=== PATIENT | female | born 1965 | race Hispanic/Latino ===

== ENCOUNTER 2018-10-08 10:19 | Emergency (ER) | payer BC ==
--- NOTE | 2018-10-08 11:07 | RAD REPORT ---
EXAM DESCRIPTION: CT - Head Brain Wo Cont - 10/08/2018 10:58 am CLINICAL HISTORY: Weathers's palsy, left-sided facial numbness left-sided facial droop COMPARISON: None. TECHNIQUE: Axial 5 mm thick images of the head were obtained without IV contrast. All CT scans are performed using dose optimization technique as appropriate and may include automated exposure control or mA/KV adjustment according to patient size. FINDINGS: No intracranial hemorrhage, mass, edema or shift of mid-line structures. No acute infarcti on changes seen. No abnormal extra-axial fluid collections. Ventricles are normal. Pain, symmetric bi lateral basal ganglia mineralization. Mastoid air cells and visualized portions of the paranasal sinuses are clear. No acute bony findings. IMPRESSION: Negative non-contrast CT head examination.
[2018-10-08] MEDS ORDERED: predniSONE 20 MG TAB ONE (11:21)
--- NOTE | 2018-10-08 11:32 | ER ---
Nurse's Notes [facility] Name: Shila Mixon Age: 53 yrs Sex: Female : 1965 Arrival Date: 10/08/2018 Time: 10:21 Bed 19 Private MD: Diagnosis: Weathers's palsy Presentation: 10/08 10:32 Presenting complaint: Patient states: left sided facial numbness, facial droop X 1 iw hour, denies weakness, left eyelid droop noted, unable to move left eyebrow. Transition of care: patient was not received from another setting of care. Onset of symptoms was October 08, 2018. Risk Assessment: Do you want to hurt yourself or someone else? Patient reports no desire to harm self or others. 10:32 Method Of Arrival: Ambulatory iw 10:32 Acuity: SANYA 3 iw 10:35 Initial Sepsis Screen: Does the patient meet any 2 criteria? No. Patient's initial iw sepsis screen is negative. Does the patient have a suspected source of infection? No. Patient's initial sepsis screen is negative. Care prior to arrival: None. DEALER CARD ROOM: 10:32 LMP N/A - iw Historical: - Allergies: 10:42 No Known Allergies; em - Home Meds: 10:42 None [Active]; em - PMHx: 10:42 TIA; CVA; Hyperlipidemia; em - PSHx: 10:42 ; Hernia repair; Appendectomy; Cholecystectomy; em - Immunization history:: Last tetanus immunization: up to date Flu vaccine is not up to date. - Social history:: Smoking status: Patient/guardian denies using tobacco. - Ebola Screening: : Patient negative for fever greater than or equal to 101.5 degrees Fahrenheit, and additional compatible Ebola Virus Disease symptoms Patient denies exposure to infectious person Patient denies travel to an Ebola-affected area in the 21 days before illness onset No symptoms or risks identified at this time. Screenin:44 Abuse screen: Denies threats or abuse. Nutritional screening: No deficits noted. em Tuberculosis screening: No symptoms or risk factors identified. Fall Risk None identified. Assessment: 10:35 General: Appears in no apparent distress. comfortable, Behavior is calm, cooperative. em Pain: Denies pain. Neuro: Level of Consciousness is awake, alert, obeys commands, Oriented to person, place, time, situation, Chief Nursing Executive are equal bilaterally Moves all extremities. Gait is steady, Speech is normal, Facial droop on right, paresthesias in right cheek and right jaw Reports paresthesias since this morning. Cardiovascular: Capillary refill < 3 seconds Patient's skin is warm and dry. Respiratory: Airway is patent Respiratory effort is even, unlabored, Respiratory pattern is regular, symmetrical. Derm: Skin is intact, is healthy with good turgor, Skin is pink, warm \T\ dry. Musculoskeletal: Range of motion: intact in all extremities. 10:45 Reassessment: Patient appears in no apparent distress at this time. I agree with above iw assessment by Brett Russell LVN. 11:30 Reassessment: Patient appears in no apparent distress at this time. Patient and/or em family updated on plan of care and expected duration. Pain level reassessed. Patient is alert, oriented x 3, equal unlabored respirations, skin warm/dry/pink. Vital Signs: 10:42 BP 149 / 97; Pulse 104; Resp 20; Pulse Ox 96% on R/A; Weight 76.66 kg; Height 5 ft. 4 em in. (162.56 cm); Pain 0/10; 11:30 BP 123 / 82; Pulse 81; Resp 18; Pulse Ox 99% on R/A; em 10:42 Body Mass Index 29.01 (76.66 kg, 162.56 cm) em ED Course: 10:21 Patient arrived in ED. as 10:25 Brett Russell LVN is Primary Nurse. em 10:26 William Clark PA is PHCP. jr8 10:27 Adriel Condon MD is Attending Physician. jr8 10:34 Triage completed. iw 10:42 Arm band placed on. em 10:44 Patient has correct armband on for positive identification. Bed in low position. Call em light in reach. Pulse ox on. NIBP on. 11:18 CT Head Brain wo Cont In Process Unspecified. EDMS 11:31 Dax Pisano MD is Referral Physician. jr8 12:13 No provider procedures requiring assistance completed. Patient did not have IV access em during this emergency room visit. Administered Medications: 11:13 Drug: predniSONE 60 mg Route: PO; em 12:09 Follow up: Response: No adverse reaction em Outcome: 11:31 Discharge ordered by MD. obrien 12:13 Discharged to home ambulatory. em 12:13 Condition: good 12:13 Discharge instructions given to patient, Instructed on discharge instructions, follow up and referral plans. medication usage, Demonstrated understanding of instructions, follow-up care, medications, Prescriptions given X 1. 12:14 Patient left the ED. em Signatures: Dispatcher [employer] EDBrett Giron, OFFICE MACHINE SERVICER APPRENTICE OFFICE MACHINE SERVICER APPRENTICE Jenise Moreno Irene, RN RN William Perkins PA PA jrKelsey
--- NOTE | 2018-10-08 11:32 | EDPHYS ---
Physician Documentation [facility] Name: Shila Mixon Age: 53 yrs Sex: Female : 1965 Arrival Date: 10/08/2018 Time: 10:21 Bed 19 Private MD: ED Physician Adriel Condon HPI: 10/08 10:55 This 53 yrs old Female presents to ER via Ambulatory with complaints of jr8 Numbness Of Face. 10:55 The patient's problem is reported as a facial droop, on left. Onset: The jr8 symptoms/episode began/occurred acutely, this morning, today. Duration: The episode is continuous. Context: symptoms became apparent when brushing teeth this AM. The symptoms are alleviated by nothing. The symptoms are aggravated by nothing. Associated signs and symptoms: Pertinent positives: Taste difference of tongue and headache that had preceded symptoms yesterday . Severity of symptoms: At their worst the symptoms were moderate in the emergency department the symptoms are unchanged. Patient's baseline: Neuro: alert and fully oriented, Motor: no deficits, Ambulation: walks without assistance, Speech: normal. The patient has not experienced similar symptoms in the past. The patient has not recently seen a physician. 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 - Social history:: Smoking status: Patient/guardian denies using tobacco. - Ebola Screening: : Patient negative for fever greater than or equal to 101.5 degrees Fahrenheit, and additional compatible Ebola Virus Disease symptoms Patient denies exposure to infectious person Patient denies travel to an Ebola-affected area in the 21 days before illness onset No symptoms or risks identified at this time. ROS: 10:55 Eyes: Negative for injury, pain, redness, and discharge, ENT: Negative for injury, jr8 pain, and discharge, Neck: Negative for injury, pain, and swelling, Cardiovascular: Negative for chest pain, palpitations, and edema, Respiratory: Negative for shortness of breath, cough, wheezing, and pleuritic chest pain, Abdomen/GI: Negative for abdominal pain, nausea, vomiting, diarrhea, and constipation, Back: Negative for injury and pain, MS/Extremity: Negative for injury and deformity, Skin: Negative for injury, rash, and discoloration. 10:55 Neuro: Positive for headache, tingling, weakness. Exam: 10:55 Eyes: Pupils equal round and reactive to light, extra-ocular motions intact. Lids and jr8 lashes normal. Conjunctiva and sclera are non-icteric and not injected. Cornea within normal limits. Periorbital areas with no swelling, redness, or edema. ENT: Nares patent. No nasal discharge, no septal abnormalities noted. Tympanic membranes are normal and external auditory canals are clear. Oropharynx with no redness, swelling, or masses, exudates, or evidence of obstruction, uvula midline. Mucous membranes moist. Neck: Trachea midline, no thyromegaly or masses palpated, and no cervical lymphadenopathy. Supple, full range of motion without nuchal rigidity, or vertebral point tenderness. No Meningismus. Cardiovascular: Regular rate and rhythm with a normal S1 and S2. No gallops, murmurs, or rubs. Normal PMI, no JVD. No pulse deficits. Respiratory: Lungs have equal breath sounds bilaterally, clear to auscultation and percussion. No rales, rhonchi or wheezes noted. No increased work of breathing, no retractions or nasal flaring. Abdomen/GI: Soft, non-tender, with normal bowel sounds. No distension or tympany. No guarding or rebound. No evidence of tenderness throughout. Back: No spinal tenderness. No costovertebral tenderness. Full range of motion. Skin: Warm, dry with normal turgor. Normal color with no rashes, no lesions, and no evidence of cellulitis. MS/ Extremity: Pulses equal, no cyanosis. Neurovascular intact. Full, normal range of motion. 10:55 Neuro: Orientation: to person, place, time \T\ situation. Mentation: is normal, Memory: is normal, immediate memory is intact, recent memory is intact, remote memory is intact, Cranial nerves: CN I not tested, normal except CN-7 Palsy present, visual maguire are intact. extraocular movements are intact, facial droop noted on left, with forehead involved. decreased ocular muscle tone in the left eye, no gross hearing deficit,. Nystagmus is absent. Speech is clear and appropriate. Tongue strength is normal, Cerebellar function: normal finger to nose testing, heel to gomez testing is normal, Motor: moves all fours, strength is 5/5 in all extremities, Sensation: no obvious gross deficits, Gait: is steady, at a normal pace, without difficulty, seizure activity, is not displayed by the patient, Abnormal movements: there are no abnormal movements. 11:36 Radiologist reports: No acute findings [facility] Vital Signs: 10:42 BP 149 / 97; Pulse 104; Resp 20; Pulse Ox 96% on R/A; Weight 76.66 kg; Height 5 ft. 4 em in. (162.56 cm); Pain 0/10; 11:30 BP 123 / 82; Pulse 81; Resp 18; Pulse Ox 99% on R/A; em 10:42 Body Mass Index 29.01 (76.66 kg, 162.56 cm) em MDM: 10:27 Patient medically screened. [facility] 11:30 Data reviewed: vital signs, nurses notes, radiologic studies, CT scan, and as a result, [facility] I will discharge patient. Data interpreted: Pulse oximetry: on room air is 96 %. Interpretation: normal. Counseling: I had a detailed discussion with the patient and/or guardian regarding: the historical points, exam findings, and any diagnostic results supporting the discharge/admit diagnosis, radiology results, the need for outpatient follow up, a neurologist, to return to the emergency department if symptoms worsen or persist or if there are any questions or concerns that arise at home. 10/08 10:38 Order name: CT Head Brain wo Cont; Complete Time: 11:30 [facility] Administered Medications: 11:13 Drug: predniSONE 60 mg Route: PO; em 12:09 Follow up: Response: No adverse reaction em Disposition: 16:50 Co-signature as Attending Physician, Adriel Condon MD. Disposition: 10/08/18 11:31 Discharged to Home. Impression: Weathers's palsy. - Condition is Stable. - Prescriptions for Prednisone 20 mg Oral Tablet - take 3 tablets by ORAL route once daily for 6 days then 2 tabs for 2 days then 1 tab for 2 days; 21 tablet. - Medication Reconciliation Form, Thank You Letter, Antibiotic Education, Prescription Opioid Use form. - Work release form (10/09/18 10:38). eb - Follow up: Dax Pisano MD; When: 2 - 3 days; Reason: Recheck today's complaints, Continuance of care, Re-evaluation by your physician. Signatures: Dispatcher [employer] EDMS Brett Russell, BIOLOGY LECTURER BIOLOGY LECTURER em William Clark, JARED PA jr8 Adriel Condon MD MD gs Botello, Elizabeth eb Corrections: (The following items were deleted from the chart) 12:14 11:31 10/08/2018 11:31 Discharged to Home. Impression: Weathers's palsy. Condition is em Stable. Forms are Medication Reconciliation Form, Thank You Letter, Antibiotic Education, Prescription Opioid Use. Follow up: Dax Pisano; When: 2 - 3 days; Reason: Recheck today's complaints, Continuance of care, Re-evaluation by your physician. jr8
== END 2018-10-08 12:14 | disposition home or self-care (01) ==
LOC: ER 10:19
DX: G51.0 Bell's palsy (principal)
CPT/HCPCS: 70450; 99284; J7512

== ENCOUNTER 2018-10-18 20:11 | Emergency (ER) | payer BC ==
[2018-10-18] MEDS ORDERED: GABAPENTIN 300 MG CAP ONE (20:56)
[2018-10-18] MEDS ORDERED: DIPHENHYDRAMINE 50 MG/ML VIAL ONE (20:57)
[2018-10-18] MEDS ORDERED: dexAMETHasone 10 MG/ML VIAL ONE (20:57)
[2018-10-18] MEDS ORDERED: METOCLOPRAMIDE 10 MG/2mL INJ ONE (20:57)
--- NOTE | 2018-10-18 22:08 | ER ---
Nurse's Notes [facility] Name: Shila Mixon Age: 53 yrs Sex: Female : 1965 Arrival Date: 10/18/2018 Time: 20:15 Bed 17 Private MD: Diagnosis: Migraine;Neuralgia and neuritis, unspecified;Zoster [herpes zoster] Presentation: 10/18 20:19 Presenting complaint: Patient states: headache X1 day with tylenol HI TEACHER. pt dx dong's ak1 palsy last week in ER. Transition of care: patient was not received from another setting of care. Onset of symptoms was October 18, 2018. Risk Assessment: Do you want to hurt yourself or someone else? Patient reports no desire to harm self or others. Initial Sepsis Screen: Does the patient meet any 2 criteria? No. Patient's initial sepsis screen is negative. Does the patient have a suspected source of infection? No. Patient's initial sepsis screen is negative. Care prior to arrival: None. 20:19 Method Of Arrival: Ambulatory ak1 20:19 Acuity: SANYA 3 ak1 Triage Assessment: 20:19 General: Appears uncomfortable, Behavior is cooperative, anxious, crying. 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 - Social history:: Smoking status: Patient/guardian denies using tobacco. - Ebola Screening: : No symptoms or risks identified at this time. Screenin:50 Abuse screen: Denies threats or abuse. Denies injuries from another. Nutritional aj screening: No deficits noted. Tuberculosis screening: No symptoms or risk factors identified. Fall Risk None identified. Assessment: 20:50 General: Appears in no apparent distress. uncomfortable, Behavior is calm, cooperative, aj appropriate for age. Pain: Complains of pain in face. Neuro: Level of Consciousness is awake, alert, obeys commands, Oriented to person, place, time, situation, Appropriate for age Speech is slurred, Facial droop on left. Neuro: Reports headache. Respiratory: Airway is patent Respiratory effort is even, unlabored, Respiratory pattern is regular, symmetrical. Derm: Skin is intact, is healthy with good turgor, Skin is pink, warm \T\ dry. normal. 21:33 Reassessment: Patient appears in no apparent distress at this time. No changes from aj previously documented assessment. Patient and/or family updated on plan of care and expected duration. Pain level reassessed. Patient is alert, oriented x 3, equal unlabored respirations, skin warm/dry/pink. Patient is resting comfortably in bed in NAD Patient states feeling better. Patient states symptoms have improved. 22:26 Reassessment: Patient appears in no apparent distress at this time. Patient is alert, aa1 oriented x 3, equal unlabored respirations, skin warm/dry/pink. Discussed d/c \T\ f/u instructions with pt; denies questions or concerns at this time. Amb to lobby with steady gait. Patient states feeling better. Vital Signs: 20:19 BP 114 / 95; Pulse 112; Resp 20; Temp 98.5; Pulse Ox 99% on R/A; Weight 76.66 kg (R); ak1 Height 5 ft. 4 in. (162.56 cm) (R); Pain 10/10; 22:26 BP 122 / 89; Pulse 91; Resp 18; Temp 98.6; Pulse Ox 98% on R/A; Pain 4/10; aa1 20:19 Body Mass Index 29.01 (76.66 kg, 162.56 cm) ak1 ED Course: 20:15 Patient arrived in ED. ag3 20:19 William Clark PA is PHCP. jr8 20:19 Daniel Rueda MD is Attending Physician. jr8 20:19 Arm band placed on Patient placed in an exam room, on a stretcher, Patient notified of ak1 wait time. 20:21 Triage completed. ak1 20:29 Cecille Angeles, SANDY is Primary Nurse. aj 20:50 Inserted saline lock: 22 gauge in left antecubital area, using aseptic technique. Blood aj collected. 22:00 Patient has correct armband on for positive identification. Bed in low position. Call aa1 light in reach. Side rails up X2. Report received from Cecille Angeles RN. Pulse ox on. NIBP on. 22:07 Dax Pisano MD is Referral Physician. jr8 22:26 No provider procedures requiring assistance completed. IV discontinued, intact, aa1 bleeding controlled, No redness/swelling at site. Pressure dressing applied. Administered Medications: 20:50 Drug: Gabapentin 300 mg Route: PO; aj 22:32 Follow up: Response: No adverse reaction; Marked relief of symptoms aa1 20:50 Drug: Reglan 10 mg Route: IVP; Site: left antecubital; aj 22:31 Follow up: Response: No adverse reaction; Marked relief of symptoms aa1 20:50 Drug: Benadryl 25 mg Route: IVP; Site: left antecubital; aj 22:31 Follow up: Response: No adverse reaction; Marked relief of symptoms aa1 20:50 Drug: Decadron - Dexamethasone 10 mg Route: IVP; Site: left antecubital; aj 22:31 Follow up: Response: No adverse reaction; Marked relief of symptoms aa1 Outcome: 22:08 Discharge ordered by . jr8 22:26 Discharged to home ambulatory. aa1 22:26 Condition: good 22:26 Discharge instructions given to patient, Instructed on discharge instructions, follow up and referral plans. medication usage, Demonstrated understanding of instructions, follow-up care, medications, Prescriptions given X 3. 22:32 Patient left the ED. aa1 Signatures: Kathrin Real RN RN aa1 Cecille Angeles RN William Tamayo PA PA jr8 Sirena Mora RN RN ak1 Joceline Nagy 3
--- NOTE | 2018-10-18 22:08 | EDPHYS ---
Physician Documentation [facility] Name: Shila Mixon Age: 53 yrs Sex: Female : 1965 Arrival Date: 10/18/2018 Time: 20:15 Bed 17 Private MD: ED Physician Daniel Rueda HPI: 10/18 21:19 This 53 yrs old Female presents to ER via Ambulatory with complaints of jr8 Headache. 21:19 The patient complains of pain to the left side of head. The patient describes the jr8 headache as a pressure, throbbing. Onset: The symptoms/episode began/occurred acutely, today. Associated signs and symptoms: The patient has no apparent associated signs or symptoms. Severity of symptoms: At its worst the pain was moderate, in the emergency department the pain is unchanged. Headache History: Denies prior headaches. The symptoms are alleviated by nothing. the symptoms are aggravated by nothing. The patient has not experienced similar symptoms in the past. The patient has been recently seen by a physician:. 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 Stated that she finished her steroids. Starting this AM with severe headache and pressure like feeling to left cheek, back of ear, and head. 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 - Social history:: Smoking status: Patient/guardian denies using tobacco. - Ebola Screening: : No symptoms or risks identified at this time. ROS: 21:19 Eyes: Negative for injury, pain, redness, and discharge, ENT: Negative for injury, jr8 pain, and discharge, Neck: Negative for injury, pain, and swelling, Cardiovascular: Negative for chest pain, palpitations, and edema, Respiratory: Negative for shortness of breath, cough, wheezing, and pleuritic chest pain, Abdomen/GI: Negative for abdominal pain, nausea, vomiting, diarrhea, and constipation, Back: Negative for injury and pain, MS/Extremity: Negative for injury and deformity, Skin: Negative for injury, rash, and discoloration. 21:19 Neuro: Positive for headache. Exam: 21:19 Eyes: Pupils equal round and reactive to light, extra-ocular motions intact. Lids and jr8 lashes normal. Conjunctiva and sclera are non-icteric and not injected. Cornea within normal limits. Periorbital areas with no swelling, redness, or edema. ENT: Nares patent. No nasal discharge, no septal abnormalities noted. Tympanic membranes are normal and external auditory canals are clear. Oropharynx with no redness, swelling, or masses, exudates, or evidence of obstruction, uvula midline. Mucous membranes moist. Neck: Trachea midline, no thyromegaly or masses palpated, and no cervical lymphadenopathy. Supple, full range of motion without nuchal rigidity, or vertebral point tenderness. No Meningismus. Cardiovascular: Regular rate and rhythm with a normal S1 and S2. No gallops, murmurs, or rubs. Normal PMI, no JVD. No pulse deficits. Respiratory: Lungs have equal breath sounds bilaterally, clear to auscultation and percussion. No rales, rhonchi or wheezes noted. No increased work of breathing, no retractions or nasal flaring. Abdomen/GI: Soft, non-tender, with normal bowel sounds. No distension or tympany. No guarding or rebound. No evidence of tenderness throughout. Back: No spinal tenderness. No costovertebral tenderness. Full range of motion. Skin: Warm, dry with normal turgor. Normal color and no evidence of cellulitis. MS/ Extremity: Pulses equal, no cyanosis. Neurovascular intact. Full, normal range of motion. Neuro: Awake and alert, GCS 15, oriented to person, place, time, and situation. Cranial nerves II-XII grossly intact. Motor strength 5/5 in all extremities. Sensory grossly intact. Cerebellar exam normal. Normal gait. 21:19 Head/face: Noted is rash, of the left occipital area and left base of the skull. Vital Signs: 20:19 BP 114 / 95; Pulse 112; Resp 20; Temp 98.5; Pulse Ox 99% on R/A; Weight 76.66 kg (R); ak1 Height 5 ft. 4 in. (162.56 cm) (R); Pain 10/10; 22:26 BP 122 / 89; Pulse 91; Resp 18; Temp 98.6; Pulse Ox 98% on R/A; Pain 4/10; aa1 20:19 Body Mass Index 29.01 (76.66 kg, 162.56 cm) ak1 MDM: 20:19 Patient medically screened. jr8 21:19 Data reviewed: vital signs, nurses notes, old medical records. Data interpreted: Pulse jr8 oximetry: on room air is 99 %. Interpretation: normal. Counseling: I had a detailed discussion with the patient and/or guardian regarding: the historical points, exam findings, and any diagnostic results supporting the discharge/admit diagnosis, the need for outpatient follow up, a neurologist, to return to the emergency department if symptoms worsen or persist or if there are any questions or concerns that arise at home. 22:06 ED course: Discussed with patient that the bells palsy coupled with the rash and jr8 sensitivity to her skin and head raises concern for early shingles breakout. Recommend acyclovir for now and to continue to see if she can get into one of our local neurologist. Patient otherwise feeling much better and agrees to plan . 10/18 20:32 Order name: IV; Complete Time: 20:50 jr8 Administered Medications: 20:50 Drug: Gabapentin 300 mg Route: PO; aj 22:32 Follow up: Response: No adverse reaction; Marked relief of symptoms aa1 20:50 Drug: Reglan 10 mg Route: IVP; Site: left antecubital; aj 22:31 Follow up: Response: No adverse reaction; Marked relief of symptoms aa1 20:50 Drug: Benadryl 25 mg Route: IVP; Site: left antecubital; aj 22:31 Follow up: Response: No adverse reaction; Marked relief of symptoms aa1 20:50 Drug: Decadron - Dexamethasone 10 mg Route: IVP; Site: left antecubital; aj 22:31 Follow up: Response: No adverse reaction; Marked relief of symptoms aa1 Disposition: 10/19 00:53 Co-signature as Attending Physician, Daniel Rueda MD. rn Disposition: 10/18/18 22:08 Discharged to Home. Impression: Migraine, Neuralgia and neuritis, unspecified, Zoster [herpes zoster]. - Condition is Stable. - Discharge Instructions: Migraine Headache, Neuropathic Pain, Shingles. - Prescriptions for gabapentin 300 mg Oral capsule - take 1 capsule by ORAL route 3 times per day As needed; 30 capsule. Tylenol- Codeine #3 300-30 mg Oral Tablet - take 2 tablets by ORAL route every 6 hours As needed; 12 tablet. Acyclovir 800 mg Oral Tablet - take 1 tablet by ORAL route 5 times per day for 10 days; 50 tablet. - Medication Reconciliation Form, Thank You Letter, Antibiotic Education, Prescription Opioid Use form. - Follow up: Dax Pisano MD; When: 2 - 3 days; Reason: Recheck today's complaints, Continuance of care, Re-evaluation by your physician. - Problem is new. - Symptoms have improved. Signatures: Kathrin Real RN RN aa1 eCcille Angeles RN RN Daniel Gamez MD MD rn Roszak, Josh, JARED PA jr8 Sirena Mora RN RN ak1 Corrections: (The following items were deleted from the chart) 10/18 22:32 22:08 10/18/2018 22:08 Discharged to Home. Impression: Migraine; Neuralgia and aa1 neuritis, unspecified; Zoster [herpes zoster]. Condition is Stable. Forms are Medication Reconciliation Form, Thank You Letter, Antibiotic Education, Prescription Opioid Use. Follow up: Dax Pisano; When: 2 - 3 days; Reason: Recheck today's complaints, Continuance of care, Re-evaluation by your physician. Problem is new. Symptoms have improved. jr8
== END 2018-10-18 22:32 | disposition home or self-care (01) ==
LOC: ER 20:11
DX: G43.909 Migraine, unspecified, not intractable, without status migrainosus (principal); M79.2 Neuralgia and neuritis, unspecified; B02.9 Zoster without complications; Z86.73 Personal history of transient ischemic attack (TIA), and cerebral infarction without residual deficits; E78.5 Hyperlipidemia, unspecified
CPT/HCPCS: 96374; 96375; 99284; J1100; J2765

== ENCOUNTER 2019-03-17 10:02 | Emergency (ER) | payer BC ==
--- NOTE | 2019-03-17 11:07 | RAD REPORT ---
EXAM DESCRIPTION: CT - Stone Protocol - 03/17/2019 10:53 am CLINICAL HISTORY: Right flank pain, lower abdominal pain, hematuria and dysuria COMPARISON: None. TECHNIQUE: Axial 5 mm thick images were obtained without oral or IV contrast. The [id number] span s the entirety of the system including uppermost abdomen and lung bases. All CT scans are performed using dose optimization technique as appropriate and may include automated exposure control or mA/KV adjustment according to patient size. FINDINGS: No hydronephrosis is present and no obstructing ureteral calculi. No suspicious renal mass es. Isodense masses and pyelonephritis are not excluded on a stone protocol CT scan. No urinary bladd er suspicious finding. No significant adrenal finding. No uterine abnormality. No evidence for left ovarian mass. Rule to fullness of the right ovary is see n without solid or cystic mass. This is not likely significant but can be re-evaluated with follow-up pelvic sonography in 6 months. Imaged portions of the liver, spleen and pancreas show no suspicious findings on non-contrast imaging . Cholecystectomy clips are present. No biliary tree dilatation. No stomach or small bowel abnormality seen. Moderate stool volume seen in the colon. No appendicitis findings. No acute GI process is seen. No hernia, mass or bulky lymphadenopathy noted. No free air, free fluid or inflammatory stranding. Patient has significant for age degenerative disc disease at L4-5. Prominent disc bulge is present. P atient has spinal stenosis at this level and left greater than right foraminal stenosis. Degenerative change elsewhere in the spine is less significant. No acute bone process. IMPRESSION: No hydronephrosis, obstructing calculus or acute finding identifiable. Isodense masses and pyelonephritis are not excluded on stone protocol technique. Gallbladder is absent with no biliary tree dilatation. No appendicitis findings or acute GI process. No abnormality seen to explain right lower quadrant pain. Patient has advanced for age degenerative change at L4-5 with central spinal stenosis and foraminal s tenosis.
[2019-03-17 11:14] LABS: Urine Bacteria 20-50 /HPF (<20); Urine Culture Reflex Order REFLEXED; Urine Mucus 2+ /HPF (NONE SEEN); Urine RBC 20-50 /HPF (NONE SEEN)
--- NOTE | 2019-03-17 11:43 | ER ---
Nurse's Notes [facility] Name: Shila Mixon Age: 54 yrs Sex: Female : 1965 Arrival Date: 03/17/2019 Time: 10:03 Bed 7 Private MD: Juice Hollis Diagnosis: Urinary tract infection, site not specified Presentation: 03/17 10:24 Presenting complaint: Patient states: Woke up this morning with right flank pain, lower jl7 abdominal pain, blood in urine and frequency. Transition of care: patient was not received from another setting of care. Onset of symptoms was March 17, 2019. Risk Assessment: Do you want to hurt yourself or someone else? Patient reports no desire to harm self or others. Initial Sepsis Screen: Does the patient meet any 2 criteria? No. Patient's initial sepsis screen is negative. Does the patient have a suspected source of infection? No. Patient's initial sepsis screen is negative. Care prior to arrival: None. 10:24 Method Of Arrival: Ambulatory [facility] 10:24 Acuity: SANYA 3 jl7 Triage Assessment: 10:31 General: Appears in no apparent distress. uncomfortable, Behavior is cooperative, bp appropriate for age, anxious. Pain: Complains of pain in pelvis. EENT: No deficits noted. Neuro: No deficits noted. Cardiovascular: No deficits noted. Respiratory: No deficits noted. GI: Reports lower abdominal pain. : Reports pain in suprapubic area with urination. Derm: No deficits noted. Musculoskeletal: No deficits noted. 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 - Social history:: Smoking status: Patient/guardian denies using tobacco. - Ebola Screening: : No symptoms or risks identified at this time. Screenin:32 Abuse screen: Denies threats or abuse. Denies injuries from another. Nutritional bp screening: No deficits noted. Tuberculosis screening: No symptoms or risk factors identified. Fall Risk None identified. Assessment: 10:32 General: SEE TRIAGE NOTE. bp 11:59 Reassessment: Patient appears in no apparent distress at this time. Patient and/or ph family updated on plan of care and expected duration. Pain level reassessed. Patient is alert, oriented x 3, equal unlabored respirations, skin warm/dry/pink. Pt d/c home w/ work notes and prescriptions. Vital Signs: 10:26 BP 113 / 87; Pulse 104; Resp 17 S; Temp 99.5(O); Pulse Ox 99% on R/A; Weight 78.93 kg jl7 (R); Height 5 ft. 4 in. (162.56 cm) (R); Pain 8/10; 12:02 BP 118 / 78; Pulse 94; Resp 18; Temp 99.0; Pulse Ox 100% on R/A; ph 10:26 Body Mass Index 29.87 (78.93 kg, 162.56 cm) jl7 ED Course: 10:03 Patient arrived in ED. as 10:05 Juice Hollis MD is Private Physician. as 10:05 [facility] kb 10:05 Daniel Rueda MD is Attending Physician. kb 10:25 Triage completed. jl7 10:26 Arm band placed on right wrist. Patient placed in an exam room, on a stretcher. jl7 10:30 Surjit Hernandez, RN is Primary Nurse. bp 10:32 Patient has correct armband on for positive identification. Bed in low position. Call bp light in reach. Side rails up X2. 11:07 CT Stone Protocol In Process Unspecified. EDMS 12:02 No provider procedures requiring assistance completed. Patient did not have IV access ph during this emergency room visit. Administered Medications: 11:58 Drug: Macrobid 100 mg Route: PO; ph 11:58 Follow up: Response: No adverse reaction; Medication administered at discharge. ph Outcome: 11:42 Discharge ordered by . kb 12:03 Discharged to home ambulatory. ph 12:03 Condition: good 12:03 Discharge instructions given to patient, Instructed on discharge instructions, follow up and referral plans. medication usage, Demonstrated understanding of instructions, follow-up care, medications, Prescriptions given X 2. 12:03 Patient left the ED. ph Addendum: 03/20/2019 07:16 Addendum: Culture Results: Positive urine culture. No further action required. Bacteria e b sensitive to prescribed antibiotic. Signatures: Dispatcher [employer] Danyelle Sy, KAITLYN REYES-Jenise Espinal Patricia, RN RN Sharon Nova RN RN jl7 Surjit Hernandez, RN RN Carole Alvares Corrections: (The following items were deleted from the chart) 03/17 10:29 10:24 Presenting complaint: Patient states: Woke up this morning with right flank pain jl7 and blood in urine jl7
--- NOTE | 2019-03-17 11:44 | EDPHYS ---
Physician Documentation [facility] Name: Shila Mixon Age: 54 yrs Sex: Female : 1965 Arrival Date: 03/17/2019 Time: 10:03 Bed 7 Private MD: Juice Hollis ED Physician Daniel Rueda HPI: 03/17 10:46 This 54 yrs old Female presents to ER via Ambulatory with complaints of kb Abdominal Pain, Pelvic Pain, Urinary Problem - blood in urine. 10:46 The patient has not recently seen a physician. kb 10:46 The patient presents with urinary symptoms, frequency, hematuria, urgency. Onset: The kb symptoms/episode began/occurred this morning. Modifying factors: The symptoms are alleviated by nothing, the symptoms are aggravated by urinating. Associated signs and symptoms: Pertinent positives: hematuria, urinary frequency. Severity of symptoms: At their worst the symptoms were moderate, in the emergency department the symptoms are unchanged. The patient has not experienced similar symptoms in the past. Pt reports pain with urination, frequency, urgency, hematuria that started this morning. States she has had low back pain for about a week so wasn't sure if that was part of it.. 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 - Social history:: Smoking status: Patient/guardian denies using tobacco. - Ebola Screening: : No symptoms or risks identified at this time. ROS: 10:45 Constitutional: Negative for fever, chills, and weight loss, ENT: Negative for injury, kb pain, and discharge, Neck: Negative for injury, pain, and swelling, Cardiovascular: Negative for chest pain, palpitations, and edema, Respiratory: Negative for shortness of breath, cough, wheezing, and pleuritic chest pain, MS/Extremity: Negative for injury and deformity, Skin: Negative for injury, rash, and discoloration, Neuro: Negative for headache, weakness, numbness, tingling, and seizure. 10:45 Abdomen/GI: Positive for abdominal pain. 10:45 Back: Positive for pain at rest, pain with movement, of the low back area. 10:45 : Positive for urinary symptoms, urinary frequency, small amounts, hematuria. Exam: 10:45 Constitutional: This is a well developed, well nourished patient who is awake, alert, kb and in no acute distress. Head/Face: Normocephalic, atraumatic. ENT: Nares patent. No nasal discharge, no septal abnormalities noted. Tympanic membranes are normal and external auditory canals are clear. Oropharynx with no redness, swelling, or masses, exudates, or evidence of obstruction, uvula midline. Mucous membranes moist. Neck: Trachea midline, no thyromegaly or masses palpated, and no cervical lymphadenopathy. Supple, full range of motion without nuchal rigidity, or vertebral point tenderness. No Meningismus. Chest/axilla: Normal chest wall appearance and motion. Nontender with no deformity. No lesions are appreciated. Cardiovascular: Regular rate and rhythm with a normal S1 and S2. No gallops, murmurs, or rubs. Normal PMI, no JVD. No pulse deficits. Respiratory: Lungs have equal breath sounds bilaterally, clear to auscultation and percussion. No rales, rhonchi or wheezes noted. No increased work of breathing, no retractions or nasal flaring. Abdomen/GI: Soft, non-tender, with normal bowel sounds. No distension or tympany. No guarding or rebound. No evidence of tenderness throughout. Skin: Warm, dry with normal turgor. Normal color with no rashes, no lesions, and no evidence of cellulitis. MS/ Extremity: Pulses equal, no cyanosis. Neurovascular intact. Full, normal range of motion. Neuro: Awake and alert, GCS 15, oriented to person, place, time, and situation. Cranial nerves II-XII grossly intact. Motor strength 5/5 in all extremities. Sensory grossly intact. Cerebellar exam normal. Normal gait. 10:45 Back: pain, that is mild, of the low back area, ROM is normal, normal spinal alignment noted, CVA tenderness, is absent. Vital Signs: 10:26 BP 113 / 87; Pulse 104; Resp 17 S; Temp 99.5(O); Pulse Ox 99% on R/A; Weight 78.93 kg jl7 (R); Height 5 ft. 4 in. (162.56 cm) (R); Pain 8/10; 12:02 BP 118 / 78; Pulse 94; Resp 18; Temp 99.0; Pulse Ox 100% on R/A; ph 10:26 Body Mass Index 29.87 (78.93 kg, 162.56 cm) jl7 MDM: 10:32 Patient medically screened. kb 10:45 Data reviewed: vital signs, nurses notes. Data interpreted: Pulse oximetry: on room air kb is 99 %. Interpretation: normal. 11:41 Counseling: I had a detailed discussion with the patient and/or guardian regarding: the kb historical points, exam findings, and any diagnostic results supporting the discharge/admit diagnosis, lab results, radiology results, the need for outpatient follow up, a family practitioner, to return to the emergency department if symptoms worsen or persist or if there are any questions or concerns that arise at home. 03/17 10:33 Order name: Urine Microscopic Only; Complete Time: 11:18 bp 03/17 10:40 Order name: CT Stone Protocol; Complete Time: 11:41 kb 03/17 10:41 Order name: Urine Dipstick--Ancillary (enter results) em1 03/17 11:39 Order name: Urine Culture EDFL 03/17 10:32 Order name: Urine Dipstick-Ancillary (obtain specimen); Complete Time: 10:39 kb Administered Medications: 11:58 Drug: Macrobid 100 mg Route: PO; ph 11:58 Follow up: Response: No adverse reaction; Medication administered at discharge. ph Disposition: 12:42 Co-signature as Attending Physician, Daniel Rueda MD. rn Disposition: 03/17/19 11:42 Discharged to Home. Impression: Urinary tract infection, site not specified. - Condition is Stable. - Discharge Instructions: Urinary Tract Infection, Adult, [id number]. - Prescriptions for Pyridium 200 mg Oral Tablet - take 1 tablet by ORAL route every 8 hours for 3 days; 9 tablet. Macrobid 100 mg Oral Capsule - take 1 capsule by ORAL route every 12 hours for 10 days; 20 capsule. - Medication Reconciliation Form, Thank You Letter, Antibiotic Education, Prescription Opioid Use, Work release form form. - Follow up: Emergency Department; When: As needed; Reason: Worsening of condition. Follow up: Private Physician; When: 2 - 3 days; Reason: Recheck today's complaints, Continuance of care, Re-evaluation by your physician. Signatures: Dispatcher [employer] [facility] Danyelle Hinton, AMY-Juliann BLAKEP-Daniel Croft MD MD rn Hall, Patricia RN RN ph Sharon Nova RN RN jl7 Surjit Hernandez RN RN bp Corrections: (The following items were deleted from the chart) 10:35 10:33 Urine Test ordered. bp bp 10:36 10:33 Urine Dipstick-Ancillary ordered. bp bp 10:50 10:33 UA MICROSCOPIC+U.LAB.BRZ ordered. [facility] 12:03 11:42 03/17/2019 11:42 Discharged to Home. Impression: Urinary tract infection, site ph not specified. Condition is Stable. Forms are Medication Reconciliation Form, Thank You Letter, Antibiotic Education, Prescription Opioid Use. Follow up: Emergency Department; When: As needed; Reason: Worsening of condition. Follow up: Private Physician; When: 2 - 3 days; Reason: Recheck today's complaints, Continuance of care, Re-evaluation by your physician. kb
[2019-03-17] MEDS ORDERED: NITROFURAN MACRO 100 MG CAP PO ONE (11:57)
[2019-03-17 12:41] VITALS: BP 118/78; TEMP 99; O2SAT 100
[2019-03-17 12:54] LABS: Urine Blood 3+ (NEG); Urine Glucose NEGATIVE (NEG); Urine Protein 1+ (NEG); Urine pH 5.5 (5.0-7.0)
== END 2019-03-17 12:03 | disposition home or self-care (01) ==
LOC: ER 10:02
DX: N39.0 Urinary tract infection, site not specified (principal); E78.5 Hyperlipidemia, unspecified
CPT/HCPCS: 74176; 76377; 81003; 81015; 87077; 87086; 87088; 87186; 99283

== ENCOUNTER 2019-06-09 09:06 | Emergency (ER) | payer BC, SELFPAY ==
[2019-06-09 09:46] LABS: Urine Blood 3+ (NEG); Urine Glucose NEGATIVE (NEG); Urine Protein 2+ (NEG); Urine Specific Gravity >1.030 (1.005-1.030); Urine pH 5.5 (5.0-7.0)
--- NOTE | 2019-06-09 09:46 | EDPHYS ---
Physician Documentation [facility] Name: Shila Mixon Age: 54 yrs Sex: Female : 1965 Arrival Date: 06/09/2019 Time: 09:10 Bed 13 Private MD: ED Physician Ralph Granados HPI: 06/09 09:39 This 54 yrs old Female presents to ER via Ambulatory with complaints of jmm Abdominal Pain. 09:39 The patient presents with abdominal pain in the lower abdomen. Onset: The jmm symptoms/episode began/occurred today. The symptoms do not radiate. Associated signs and symptoms: Pertinent positives: dysuria, Pertinent negatives: fever. This is a 54 year old female with a history of hlp, that presents to the ED with complaints of lower abdominal pain beginning today. Patient states that yesterday she developed increased urinary frequency, urgency. Over the past 11 days patient has had cough, body aches but no known fever. . 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 - Social history:: Smoking status: Patient denies any tobacco usage or history of. ROS: 09:39 Constitutional: Positive for body aches, Negative for fever. jmm 09:39 Respiratory: Positive for cough. 09:39 Abdomen/GI: Positive for abdominal pain. 09:39 : Positive for urinary frequency, small amounts, burning with urination. 09:39 All other systems are negative. Exam: 09:39 Constitutional: This is a well developed, well nourished patient who is awake, alert, jmm and in no acute distress. Head/Face: atraumatic. Eyes: EOMI, no conjunctival erythema appreciated ENT: Moist Mucus Membranes Neck: Trachea midline, Supple Chest/axilla: Normal chest wall appearance and motion. Cardiovascular: Regular rate and rhythm. No edema appreciated Respiratory: Normal respirations, no respiratory distress appreciated 09:39 Back: Normal ROM Skin: General appearance color normal MS/ Extremity: Moves all extremities, no obvious deformities appreciated, no edema noted to the lower extremities Neuro: Awake and alert, normal gait Psych: Behavior is normal, Mood is normal, Patient is cooperative and pleasant 09:39 Abdomen/GI: Inspection: abdomen appears normal, Bowel sounds: normal, Palpation: soft, mild abdominal tenderness, in the suprapubic area, Indicators: McBurney's point is not tender. Vital Signs: 09:23 BP 118 / 86; Pulse 95; Resp 18; Temp 98.5(O); Pulse Ox 97% on R/A; Weight 76.2 kg; ss Height 5 ft. 4 in. (162.56 cm); Pain 9/10; 09:23 Body Mass Index 28.84 (76.20 kg, 162.56 cm) ss MDM: 09:23 Patient medically screened. [facility] 09:42 Data reviewed: vital signs, nurses notes. Counseling: I had a detailed discussion with leonel the patient and/or guardian regarding: the historical points, exam findings, and any diagnostic results supporting the discharge/admit diagnosis, lab results, the need for outpatient follow up, to return to the emergency department if symptoms worsen or persist or if there are any questions or concerns that arise at home. ED course: Patient is alert and non toxic in appearance in the ED. Patient has no signs of resp distress. No McBurney pt tenderness. no CVA tenderness. patient most likely has bronchitis with cystitis. Patient given early appendicitis return precautions. Patient understood and agrees with the plan of care. . 06/09 09:29 Order name: Urine Dipstick--Ancillary (enter results); Complete Time: 09:55 ss 06/09 09:29 Order name: Urine --Ancillary (enter results); Complete Time: 09:55 ss 06/09 09:29 Order name: Urine Dipstick-Ancillary (obtain specimen); Complete Time: 09:29 ss 06/09 09:38 Order name: Urine Culture [facility] Administered Medications: 09:55 Drug: Rocephin (cefTRIAXone) 1 grams Route: IM; Site: right gluteus; ll1 10:06 Follow up: Response: No adverse reaction ll1 Disposition: 17:44 Co-signature as Attending Physician, Ralph Granados MD Chart signed for administrative ps1 purposes. . Disposition: 06/09/19 09:45 Discharged to Home. Impression: Urinary tract infection, site not specified, Acute upper respiratory infection, unspecified. - Condition is Stable. - Discharge Instructions: Dysuria, Urinary Tract Infection, Adult. - Prescriptions for Levaquin 750 mg Oral Tablet - take 1 tablet by ORAL route once daily for 10 days; 10 tablet. - Medication Reconciliation Form, Thank You Letter, Antibiotic Education, Prescription Opioid Use, Work release form form. - Follow up: Private Physician; When: 2 - 3 days; Reason: Recheck today's complaints, Continuance of care, Re-evaluation by your physician. Signatures: Dispatcher [employer] EDMS Lincoln Curry PA PA jmm Smirch, Shelby, SANDY RN ss Ralph Granados MD MD ps1 Saumya Lam RN RN ll1 Corrections: (The following items were deleted from the chart) 10:10 09:45 06/09/2019 09:45 Discharged to Home. Impression: Urinary tract infection, site ll1 not specified; Acute upper respiratory infection, unspecified. Condition is Stable. Forms are Medication Reconciliation Form, Thank You Letter, Antibiotic Education, Prescription Opioid Use. Follow up: Private Physician; When: 2 - 3 days; Reason: Recheck today's complaints, Continuance of care, Re-evaluation by your physician. leonel
--- NOTE | 2019-06-09 09:46 | ER ---
Nurse's Notes [facility] Name: Shila Mixon Age: 54 yrs Sex: Female : 1965 Arrival Date: 06/09/2019 Time: 09:10 Bed 13 Private MD: Diagnosis: Urinary tract infection, site not specified;Acute upper respiratory infection, unspecified Presentation: 06/09 09:23 Chief complaint: Patient states: suprapubic discomfort and urinary frequency that began ss this morning. Coronavirus screen: The patient has NOT traveled to [place] in the past 14 days. Proceed with normal triage procedures. Ebola Screen: Patient denies exposure to infectious person. Patient denies travel to an Ebola-affected area in the 21 days before illness onset. Initial Sepsis Screen: Does the patient meet any 2 criteria? HR > 90 bpm. Does the patient have a suspected source of infection? Yes: Dysuria/Frequency/Urgency/UTI. Risk Assessment: Do you want to hurt yourself or someone else? Patient reports no desire to harm self or others. 09:23 Method Of Arrival: Ambulatory ss 09:23 Acuity: SANYA 4 ss 10:09 Onset of symptoms was June 06, 2019. 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 - Social history:: Smoking status: Patient denies any tobacco usage or history of. Screenin:49 Abuse screen: Denies threats or abuse. Denies injuries from another. Nutritional ph screening: No deficits noted. Tuberculosis screening: No symptoms or risk factors identified. Fall Risk None identified. Assessment: 09:50 General: Appears in no apparent distress. comfortable, Behavior is calm, cooperative, ph appropriate for age. Pain: Complains of pain in suprapubic area. Neuro: Level of Consciousness is awake, alert, obeys commands, Oriented to person, place, time, situation. Cardiovascular: Capillary refill < 3 seconds in bilateral Patient's skin is warm and dry. Respiratory: Airway is patent Respiratory effort is even, unlabored. GI: Reports lower abdominal pain. : Reports pain in suprapubic area urinary frequency. Derm: Skin is intact, is healthy with good turgor, Skin is pink, warm \T\ dry. 09:52 Reassessment: Patient appears in no apparent distress at this time. Patient and/or ph family updated on plan of care and expected duration. Pain level reassessed. Patient is alert, oriented x 3, equal unlabored respirations, skin warm/dry/pink. D/C pending 15 min shot time. 10:07 GI: Bowel sounds present X 4 quads. Abd is soft Abd is non tender. ll1 10:10 Reassessment: Patient and/or family updated on plan of care and expected duration. Pain ll1 level reassessed. Patient is alert, oriented x 3, equal unlabored respirations, skin warm/dry/pink. Vital Signs: 09:23 BP 118 / 86; Pulse 95; Resp 18; Temp 98.5(O); Pulse Ox 97% on R/A; Weight 76.2 kg; ss Height 5 ft. 4 in. (162.56 cm); Pain 9/10; 09:23 Body Mass Index 28.84 (76.20 kg, 162.56 cm) ED Course: 09:10 Patient arrived in ED. fj1 09:13 Lincoln Curry PA is PHCP. [facility] 09:13 Ralph Granados MD is Attending Physician. [facility] 09:25 Triage completed. 09:26 Arm band placed on right wrist. 09:32 Emmy Nguyen, RN is Primary Nurse. 09:32 Patient has correct armband on for positive identification. Bed in low position. Call [facility] light in reach. Side rails up X 1. Warm blanket given. Pulse ox on. NIBP on. 09:32 Urine --Ancillary (enter results) Sent. 5 09:32 Urine Dipstick--Ancillary (enter results) Sent. [facility] 09:32 Urine collected: clean catch specimen, cloudy. 5 10:07 No provider procedures requiring assistance completed. Patient did not have IV access ll1 during this emergency room visit. Administered Medications: 09:55 Drug: Rocephin (cefTRIAXone) 1 grams Route: IM; Site: right gluteus; ll1 10:06 Follow up: Response: No adverse reaction ll1 Outcome: 09:45 Discharge ordered by . leonel 10:08 Discharged to home ambulatory, gait steady. 1 10:08 Condition: good 10:08 Discharge instructions given to patient, Instructed on discharge instructions, follow up and referral plans. Demonstrated understanding of instructions, follow-up care, medications, Prescriptions given X 1. 10:10 Patient left the ED. 1 Addendum: 06/12/2019 07:11 Addendum: Culture Results: Positive urine culture. No further action required. Bacteria i w sensitive to prescribed antibiotic. Signatures: Lincoln Curry PA PA jmm Williams, Irene, Fatemeh Calle RN, RN RN ss Hall, Patricia, RN RN ph Martinez, Justyna [facility] Juice Lowe [facility] Saumya Lam RN RN 1
[2019-06-09] MEDS ORDERED: LIDOCAINE 1% MPF 5 ML VIAL ONE (09:48)
[2019-06-09] MEDS ORDERED: CEFTRIAXONE 1000 MG/VIAL ONE (09:48)
[2019-06-09 10:21] VITALS: BP 118/86; TEMP 98.5; O2SAT 97
== END 2019-06-09 10:10 | disposition home or self-care (01) ==
LOC: ER 09:06
DX: N39.0 Urinary tract infection, site not specified (principal); J06.9 Acute upper respiratory infection, unspecified; E78.5 Hyperlipidemia, unspecified; Z86.73 Personal history of transient ischemic attack (TIA), and cerebral infarction without residual deficits
CPT/HCPCS: 81003; 81025; 87077; 87086; 87088; 87186; 96372; 99284